=== PATIENT | female | born 1955 | race Caucasian/White ===

== ENCOUNTER 2020-03-30 09:13 | Outpatient (CLI) | payer MEDICARE, BC, OTHER, SELFPAY ==
--- NOTE | ~2020-03-30 | CT_ITS ---
EXAMINATION: CT abdomen pelvis wo/w con DATE: 03/30/2020 09:40 INDICATION: Abdominal pain, history of left kidney cancer TECHNIQUE: Computed tomography (CT) of the abdomen was performed without intravenous contrast. CT of the abdomen and pelvis was then performed with a total of 100 mL Omnipaque 350 intravenous contrast. The dose-length product (DLP) was 868.17 mGy-cm. Automated exposure control and iterative reconstruct ion technique were employed. COMPARISON: 09/16/2018 FINDINGS: Minimal dependent atelectasis is present in the lung bases. The heart size is normal. The l iver, pancreas, gallbladder, and adrenal glands are normal. There are surgical changes in the left ki dney upper pole with no evidence of residual or recurrent neoplasm. There is a 2.2 cm cyst of the rig ht kidney. No stones are identified in the kidneys, ureters, or bladder. There is no hydronephrosis o r hydroureter. No pathologically enlarged abdominal or pelvic lymph nodes are identified. There is no free intraperitoneal gas or evidence of bowel obstruction. There is calcified atherosclerosis of the aorta and many of the other arteries. The appendix is normal. There is moderate lumbar spondylosis. IMPRESSION: 1. No CT correlate for the patient's symptoms. 2. Surgical changes in the left kidney upper pole without evidence of residual or recurrent neoplasm. Reviewed, dictated and finalized at location A. TIC FACILITY MANAGER
[2020-03-30 09:36] LABS: Estimated Glomerular Filt Rate 55
== END 2020-03-30 09:14 | disposition home or self-care (01) ==
LOC: ANHIMG 09:18
PROVIDERS: PCP Family Medicine; Visit Provider Family Medicine
DX: R10.9 Unspecified abdominal pain (principal); C64.9 Malignant neoplasm of unspecified kidney, except renal pelvis
CPT/HCPCS: 74178; Q9967

== ENCOUNTER 2020-08-11 13:59 | Outpatient (CLI) | payer MEDICARE, BC, OTHER, SELFPAY ==
--- NOTE | ~2020-08-11 | CT_ITS ---
EXAMINATION: CT soft tissue neck wo con DATE: 08/11/2020 14:25 INDICATION: Neck pain. TECHNIQUE: Computed tomography (CT) of the neck was performed without intravenous contrast. Automated exposure control and iterative reconstruction technique were employed. The dose-length product was 4 57.63 mGy-cm. COMPARISON: None FINDINGS: Calcified left lung nodules are consistent with old granulomatous disease. There are no pat hologically enlarged lymph nodes. The major salivary glands are normal. There is no sialolith. The pa ranasal sinuses are clear. The mastoid air cells are normal. There is moderate cervical spondylosis. IMPRESSION: 1. No specific etiology for the patient's symptoms. Reviewed, dictated and finalized at location B.
== END 2020-08-11 14:00 | disposition home or self-care (01) ==
PROVIDERS: PCP Family Medicine; Visit Provider Family Medicine
DX: M54.2 Cervicalgia (principal); G89.29 Other chronic pain
CPT/HCPCS: 70490

== ENCOUNTER 2021-01-31 11:50 | Outpatient (RCR) | payer MEDICARE, BC, OTHER, SELFPAY ==
[2021-01-31] MEDS: diphenhydrAMINE HCl CAP 25 MG CAPSULE PO (12:14)
[2021-01-31] MEDS: ACETAMINOPHEN 325 MG TABLET 650 MG PO (12:14)
[2021-01-31] MEDS: FAMOTIDINE 20 MG TABLET PO (12:15)
[2021-01-31 12:18] VITALS: BP 159/74; PULSE 74; RESP 20; TEMP 36.9; O2SAT 98
[2021-01-31 13:18] VITALS: BP 145/70
== END 2021-01-31 15:52 | disposition home or self-care (01) ==
LOC: AMCINF 11:50
PROVIDERS: PCP Family Medicine; Referring Provider Family Medicine; Visit Provider Internal Medicine Hematology & Oncology
DX: Z23 Encounter for immunization (principal); U07.1 COVID-19; I10 Essential (primary) hypertension
CPT/HCPCS: A9270; M0243; Q0243

== ENCOUNTER 2021-08-16 14:48 | Outpatient (CLI) | payer MEDICARE, BC, OTHER, SELFPAY ==
--- NOTE | ~2021-08-16 | MR_ITS ---
EXAMINATION: MR cervical spine wo con DATE: 08/16/2021 15:44 INDICATION: Radiculopathy, cervical region. TECHNIQUE: Magnetic resonance imaging (MRI) of the cervical spine was performed without intravenous c ontrast. Sequences included sagittal T2-weighted FSE, sagittal T2-weighted FS FSE, sagittal T1-weight ed FSE, axial MERGE, and axial T2-weighted FSE. COMPARISON: None FINDINGS: There is hypolordosis of cervical spine. Vertebral body heights are normal. There is mildly decreased disc height at C6-C7. The spinal cord signal intensity is normal. The following disc level s are specifically discussed: C2-C3: The disc does not extend beyond the endplate margin. There is mild right uncovertebral joint o steoarthritis. There is no facet joint osteoarthritis. There is mild right neural foraminal stenosis. There is no central canal stenosis. C3-C4: There is a central extrusion. There is no uncovertebral joint osteoarthritis. There is no face t joint osteoarthritis. There is no neural foraminal stenosis. There is mild central canal stenosis w ith ventral indentation of the spinal cord. C4-C5: There is a central protrusion. There is no uncovertebral joint osteoarthritis. There is no fac et joint osteoarthritis. There is no neural foraminal stenosis. There is mild central canal stenosis with ventral indentation of the spinal cord. C5-C6: There is a left central extrusion. There is moderate bilateral uncovertebral joint osteoarthri tis. There is no facet joint osteoarthritis. There is mild right and moderate left neural foraminal s tenosis. There is moderate central canal stenosis with ventral and dorsal indentation of the spinal c ord. C6-C7: The disc is bulging with superimposed extrusion in the left lateral recess. There is moderate bilateral uncovertebral joint osteoarthritis. There is no facet joint osteoarthritis. There is modera te left neural foraminal stenosis. There is mild central canal stenosis at the midline. There is kev re stenosis of left lateral recess with ventral indentation of the spinal cord. C7-T1: There is a central protrusion. There is no uncovertebral joint osteoarthritis. There is mild r ight and severe left facet joint osteoarthritis. There is mild left neural foraminal stenosis. There is mild central canal stenosis. IMPRESSION: 1. Moderate cervical spondylosis. Reviewed, dictated and finalized at location A.
== END 2021-08-16 14:49 | disposition home or self-care (01) ==
PROVIDERS: PCP Family Medicine; Visit Provider Family Medicine
DX: M47.22 Other spondylosis with radiculopathy, cervical region (principal)
CPT/HCPCS: 72141

== ENCOUNTER → 2022-09-06 13:34 | Outpatient (CLI) | payer MEDICARE, BC, OTHER, SELFPAY ==
--- NOTE | ~2022-09-06 | CT_ITS ---
EXAMINATION: CT soft tissue neck w con DATE: 09/06/2022 14:02 INDICATION: Bilateral parotid masses. TECHNIQUE: Computed tomography (CT) of the neck was performed with 75 mL Omnipaque-350 intravenous co ntrast. Automated exposure control and iterative reconstruction technique were employed. The dose-keagan gth product was 438.66 mGy-cm. COMPARISON: Neck CT 08/11/2020 FINDINGS: There is a 9 x 7 mm mass in superficial right parotid gland that previously measured 5 x 4 mm, likely a normal lymph node. No sialolith or abnormal mass. There are no pathologically enlarged l ymph nodes. There is plaque in the proximal internal carotid arteries with less than 50% stenosis rel ative to normal distal artery lumen diameters. There is moderate cervical spondylosis. IMPRESSION: 1. Normal parotid glands. Reviewed, dictated and finalized at location A. IMPRESSION: 1. Normal parotid glands.
== END ==
PROVIDERS: PCP Family Medicine; Visit Provider Otolaryngology
DX: K11.8 Other diseases of salivary glands (principal)
CPT/HCPCS: 70491; Q9967

== ENCOUNTER 2023-04-15 09:13 | Outpatient (CLI) | payer MEDICARE, BC, OTHER, SELFPAY ==
[2023-04-15 19:49] LABS: Alanine Aminotransferase 18 U/L (6-35); Alkaline Phosphatase 93 U/L (38-126); Anion Gap 4 mmol/L (8-16); Aspartate Amino Transferase 26 U/L (14-36); Bilirubin,Total 0.7 mg/dL (0.2-1.3); Blood Urea Nitrogen 15 mg/dL (7-17); Calcium 9.1 mg/dL (8.4-10.2); Carbon Dioxide 34 mmol/L (22-30); Chloride 103 mmol/L (98-107); Cholesterol 166 mg/dL (0-200); Estimated Glomerular Filt Rate > 60; Glucose 95 mg/dL (65-110); HDL Direct 35 mg/dL; Potassium 4.5 mmol/L (3.4-5.0); Sodium 141 mmol/L (137-145); Triglycerides 149 mg/dL (<150)
[2023-04-15 19:59] LABS: Basophils Absolute Auto 0.1 K/mm3 (0.0-0.1); Basophils Percent Auto 1.4 % (0.2-1.2); Eosinophils Absolute Auto 0.2 K/mm3 (0-0.3); Eosinophils Percent Auto 3.6 % (0-4.4); Hematocrit 45.3 % (37.0-47.0); Hemoglobin 14.4 g/dL (12.0-15.0); Immature Granulocyte Absolute 0.01 K/mm3 (0.00-0.031); Immature Granulocyte Percent A 0.2 % (0-0.5); Lymphocytes Absolute Auto 1.96 K/mm3 (0.9-3.2); Lymphocytes Percent Auto 30.6 % (18.3-44.2); Mean Corpuscular HGB Conc 31.8 g/dl (32-36); Mean Corpuscular Hemoglobin 32.4 pg (26-34); Mean Platelet Volume 10.3 fl (7.4-10.4); Monocytes Absolute Auto 0.6 K/mm3 (0.1-0.6); Neutrophils Absolute Auto 3.5 K/mm3 (1.3-6.7); Neutrophils Percent Auto 54.2 % (45.5-73.1); Platelet Count Result 256 k/mm3 (150-375); Red Blood Count 4.44 M/mm3 (4.2-5.4); Red Cell Distribution Width 11.4 % (11.5-14.5); White Blood Count 6.4 K/mm3 (4.5-10.0)
[2023-04-15 20:00] LABS: LDL Cholesterol Direct 90 mg/dL
[2023-04-15 20:03] LABS: Appearance Urine Turbid (Clear); Bacteria Urine None Seen /hpf; Bilirubin Urine Negative (Negative); Blood Urine Negative (Negative); Color Urine Yellow (Yellow); Glucose Urine UA Negative (Negative); Ketones Urine Negative (Negative); Leukocyte Esterase Ur Negative LEU/UL (NEGATIVE); Nitrate Urine Negative (Negative); Non Pathogenic Casts 0-2; Protein Urine Negative (Negative); RBC Urine 0-2 /hpf (0-2); Specific Grav Ur 1.019 (1.001-1.035); Squamous Epithelial Cell Urine Moderate /hpf (Few); Urobilinogen Urine 0.2 mg/dL (<2.0); WBC Urine 0-5 /hpf (0-3); pH Urine 5.5 (5.0-9.0)
[2023-04-15 20:17] LABS: Add Urine Microscopic? YES
[2023-04-15 20:19] LABS: Thyroid Stimulating Hormone 0.178 uIU/mL (0.465-4.680)
[2023-04-15 20:36] LABS: Hemoglobin A1C 6.1 % (<5.7)
[2023-04-18 23:57] LABS: Vitamin D 1,25 (OH)2 Total 32 pg/mL (18-72); Vitamin D2 1,25 (OH)2 <8 pg/mL; Vitamin D3 1,25 (OH)2 32 pg/mL
== END 2023-04-15 09:14 | disposition home or self-care (01) ==
LOC: ANHGOSHLAB 09:17
PROVIDERS: PCP Family Medicine; Visit Provider Family Medicine
DX: E55.9 Vitamin D deficiency, unspecified (principal); D51.9 Vitamin B12 deficiency anemia, unspecified; R73.01 Impaired fasting glucose; E78.2 Mixed hyperlipidemia; E03.9 Hypothyroidism, unspecified
CPT/HCPCS: 36415; 80048; 80061; 80076; 81001; 82607; 82652; 83036; 84443; 85025

== ENCOUNTER 2023-10-13 08:38 | Outpatient (CLI) | payer MEDICARE, BC, OTHER, SELFPAY ==
[2023-10-13 15:20] LABS: Alanine Aminotransferase 17 U/L (6-35); Albumin Level 4.4 g/dL (3.5-5.1); Alkaline Phosphatase 93 U/L (38-126); Anion Gap 8 mmol/L (4-12); Aspartate Amino Transferase 47 U/L (14-36); Bilirubin,Total 0.9 mg/dL (0.2-1.3); Blood Urea Nitrogen 17 mg/dL (7-17); Calcium 8.8 mg/dL (8.4-10.2); Carbon Dioxide 32 mmol/L (22-30); Chloride 100 mmol/L (98-107); Cholesterol 148 mg/dL (0-200); Estimated Glomerular Filt Rate > 60; Glucose 82 mg/dL (65-110); HDL Direct 33 mg/dL; Potassium 4.4 mmol/L (3.4-5.0); Sodium 140 mmol/L (137-145); Triglycerides 134 mg/dL (<150)
[2023-10-13 15:32] LABS: LDL Cholesterol Direct 88 mg/dL
[2023-10-13 15:47] LABS: Free T4 Free Thyroxine 1.92 ng/mL (0.78-2.19)
[2023-10-13 15:49] LABS: Thyroid Stimulating Hormone 0.083 uIU/mL (0.465-4.680)
[2023-10-14 08:36] LABS: Hemoglobin A1C 6.2 % (<5.7)
== END 2023-10-13 08:39 | disposition home or self-care (01) ==
PROVIDERS: PCP Family Medicine; Visit Provider Family Medicine
DX: E03.9 Hypothyroidism, unspecified (principal); E78.2 Mixed hyperlipidemia; R73.01 Impaired fasting glucose
CPT/HCPCS: 36415; 80048; 80061; 80076; 83036; 84439; 84443

== ENCOUNTER 2023-12-22 12:53 | Outpatient (CLI) | payer MEDICARE, BC, OTHER, SELFPAY ==
[2023-12-22 13:37] LABS: Add Urine Microscopic? YES; Appearance Urine Clear (Clear); Bacteria Urine Rare /hpf; Bilirubin Urine Negative (Negative); Blood Urine Trace (Negative); Color Urine Yellow (Yellow); Glucose Urine UA Negative (Negative); Ketones Urine Negative (Negative); Leukocyte Esterase Ur 2+ LEU/UL (Negative); Nitrate Urine Negative (Negative); Non Pathogenic Casts 0-2; Protein Urine Negative (Negative); RBC Urine 0-2 /hpf (0-2); Specific Grav Ur 1.005 (1.001-1.035); Squamous Epithelial Cell Urine None Seen /hpf (Few); Urobilinogen Urine 0.2 mg/dL (<2.0); WBC Urine 21-50 /hpf (0-3)
== END 2023-12-22 12:54 | disposition home or self-care (01) ==
PROVIDERS: PCP Family Medicine; Visit Provider Nurse Practitioner Family
DX: R30.0 Dysuria (principal)
CPT/HCPCS: 81001; 87077; 87086; 87088; 87186

== ENCOUNTER 2024-05-27 09:11 | Outpatient (CLI) | payer MEDICARE, BC, OTHER, SELFPAY ==
[2024-05-27 15:04] LABS: Basophils Absolute Auto 0.1 K/mm3 (0.0-0.1); Basophils Percent Auto 0.8 % (0.2-1.2); Eosinophils Absolute Auto 0.2 K/mm3 (0-0.3); Eosinophils Percent Auto 3.7 % (0-4.4); Hematocrit 45.2 % (37.0-47.0); Hemoglobin 14.5 g/dL (12.0-15.0); Lymphocytes Absolute Auto 2.01 K/mm3 (0.9-3.2); Mean Corpuscular HGB Conc 32.1 g/dl (32-36); Mean Corpuscular Hemoglobin 32.5 pg (26-34); Mean Corpuscular Volume 101.3 fl (80-100); Monocytes Absolute Auto 0.5 K/mm3 (0.1-0.6); Monocytes Percent Auto 8.6 % (2.6-8.5); Neutrophils Absolute Auto 3.5 K/mm3 (1.3-6.7); Neutrophils Percent Auto 54.9 % (45.5-73.1); Platelet Count Result 243 k/mm3 (150-375); Red Blood Count 4.46 M/mm3 (4.2-5.4); Red Cell Distribution Width 11.3 % (11.5-14.5); White Blood Count 6.3 K/mm3 (4.5-10.0)
[2024-05-27 15:16] LABS: Add Urine Microscopic? YES; Appearance Urine Cloudy (Clear); Bacteria Urine Rare /hpf; Bilirubin Urine Negative (Negative); Blood Urine Negative (Negative); Budding Yeast Urine Present /hpf; Calcium Oxalate Crystals Urine Present /hpf; Color Urine Yellow (Yellow); Glucose Urine UA Negative (Negative); Ketones Urine Trace mg/dL (Negative); Leukocyte Esterase Ur 1+ LEU/UL (Negative); Need Manual Microscopic Reviewed; Nitrate Urine Negative (Negative); Non Pathogenic Casts 0-2; Protein Urine Negative (Negative); Squamous Epithelial Cell Urine Moderate /hpf (Few); WBC Urine 21-50 /hpf (0-3)
[2024-05-27 15:26] LABS: Creatinine Urine 261.1 mg/dL
[2024-05-27 15:30] LABS: MALB Creatinine Ratio 4.7 mg/g (0-30); Microalbumin Urine Random 12.4 mg/L (0-16.7)
[2024-05-27 19:11] LABS: Alanine Aminotransferase 26 U/L (6-35); Albumin Level 4.1 g/dL (3.5-5.1); Alkaline Phosphatase 85 U/L (38-126); Anion Gap 8 mmol/L (4-12); Aspartate Amino Transferase 44 U/L (14-36); Bilirubin,Total 0.6 mg/dL (0.2-1.3); Blood Urea Nitrogen 12 mg/dL (7-17); Calcium 8.6 mg/dL (8.4-10.2); Carbon Dioxide 31 mmol/L (22-30); Chloride 103 mmol/L (98-107); Cholesterol 117 mg/dL (0-200); Estimated Glomerular Filt Rate > 60; Glucose 91 mg/dL (65-110); HDL Direct 28 mg/dL; Phosphorus 3.6 mg/dL (2.5-4.5); Potassium 4.1 mmol/L (3.4-5.0); Sodium 142 mmol/L (137-145); Triglycerides 129 mg/dL (<150)
[2024-05-27 19:22] LABS: LDL Cholesterol Direct 56 mg/dL
[2024-05-27 22:43] LABS: Free T4 Free Thyroxine 1.16 ng/dL (0.78-2.19)
[2024-05-28 04:17] LABS: Hemoglobin A1C 6.5 % (<5.7)
== END 2024-05-27 09:12 | disposition home or self-care (01) ==
LOC: ANHGOSHLAB 09:13
PROVIDERS: PCP Family Medicine; Visit Provider Family Medicine
DX: E03.9 Hypothyroidism, unspecified (principal); D51.9 Vitamin B12 deficiency anemia, unspecified; E78.2 Mixed hyperlipidemia; R73.01 Impaired fasting glucose; E55.9 Vitamin D deficiency, unspecified
CPT/HCPCS: 36415; 80053; 80061; 81001; 82043; 82607; 82652; 83036; 84100; 84439; 84443; 85025

== ENCOUNTER 2024-09-03 12:40 | Outpatient (CLI) | payer MEDICARE, BC, OTHER, SELFPAY ==
--- NOTE | ~2024-09-03 | US_ITS ---
US thyroid INDICATION: Dysphagia. Neck swelling TECHNIQUE: Real-time sonographic images of the thyroid gland were obtained. COMPARISON: No prior studies for comparison. FINDINGS: The right thyroid lobe is surgically absent. The left lobe measures 4.1 x 1.1 x 1.2 cm and is heterogeneous without discrete mass. Isthmus measures 2 mm. IMPRESSION: 1. Heterogeneous left thyroid lobe without discrete mass. Status post right thyroidectomy. Reviewed, dictated and finalized at location A. IMPRESSION: 1. Heterogeneous left thyroid lobe without discrete mass. Status post right th yroidectomy.
== END 2024-09-03 12:41 | disposition home or self-care (01) ==
LOC: MICIMG 12:42
PROVIDERS: PCP Family Medicine; Visit Provider Family Medicine
DX: R13.10 Dysphagia, unspecified (principal)
CPT/HCPCS: 76536

== ENCOUNTER 2024-09-09 08:27 | Outpatient (CLI) | payer MEDICARE, BC, OTHER, SELFPAY ==
--- OUTSIDE RECORDS SUMMARY | 2024-09-09 08:39 | XMS_ITS | Clinical Summary ---
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 Name Role Phone Jose Pool MD Primary Care Provider [phone] Allergies Active Allergy Reactions Criticality Noted Date Comments Pravastatin Muscle pain Medium 03/22/2019 Medications levothyroxine (LEVOXYL) 100 mcg tabletIndicatio ns:hypothyroidi sm Take 1 tablet (100 mcg total) by mouth buckle wire inserter before breakfast 8 Active ibuprofen (ibuprofen) 200 mg tab/cap Take 1 tablet/capsule (200 mg total) by mouth every 6 (six) hours as needed for headaches, fever or pain Active valACYclovir (VALTREX) 1 gram tabletIndicatio ns:cold sores Take 1 tablet (1,000 mg total) by mouth as needed 1 Active rosuvastatin (CRESTOR) 10 mg tablet TAKE ONE TABLET BY MOUTH EVERY DAY 90 tablet 3 1 Active Additional Information Patient taking differently: 10 mg oral Daily (early AM), Indications: hyperlipidemia, Informant: Self, Reported on 08/22/2023 cyclobenzaprine (FLEXERIL) 10 mg tablet Take 1 tablet (10 mg total) by mouth 3 (three) times a day as needed for muscle spasms for muscle spasms 3 Active irbesartan (AVAPRO) 300 mg tabletIndicatio ns:hypertension Take 1 tablet (300 mg total) by mouth buckle wire inserter before breakfast [address] (PROTONIX) 40 mg EC tabletIndicatio ns:Treatment of Non-Bleeding Gastric Disorder Take 1 tablet (40 mg total) by mouth every morning 3 Active vitamins A,C,E-zinc-angel er (ICAPS) 4,296 mcg-226 mg-90 mg capsuleIndicati ons:eye health Take 1 capsule by mouth 2 (two) times a day Active senna-docusate (Senna with Docusate Sodium) 8.6-50 mg Take 1 tablet by mouth daily 30 tablet 4 Active Active Problems Problem Noted Date Diagnosed Date Cubital tunnel syndrome on right 08/21/2023 Dermatochalasis of both upper eyelids 08/01/2022 Assessment & Plan (05/21/2024 4:13 PM METALLURGY LABORATORY TECHNICIAN): Discussed option for eyelid evaluation, pt again defers. Will monitor and call should desire to proceed w surgery Assessment & Plan (08/04/2023 10:46 AM CDT): Evaluated by Dr. Peterson 09/11/22, she elects to monitor at this time. Pt to call if she changes her mind prior to annual visit. Assessment & Plan (08/01/2022 11:25 AM CDT): -pt reports brow ache at the end of the day -also reports she feels tired constantly d/t her eyelids -also with superior peripheral vision complaints; subjectively reports vision improves when manually lifting eyelids in office today -pt motivated for surgical intervention -RTC next available with oculoplastics for bleph evaluation Allergic conjunctivitis of both eyes 12/06/2020 Assessment & Plan (05/21/2024 12:31 PM METALLURGY LABORATORY TECHNICIAN): Continue using OTC allergy gtts such as Pataday. Monitor. Assessment & Plan (08/04/2023 10:46 AM CDT): Ed pt, recommend Pataday or Lastacaft qam. Monitor. Assessment & Plan (12/06/2020 11:15 AM CDT): Discussed findings and treatment options. Rx Alaway or zaditor OTC bid ou prn. RTC if not resolving. Monitor. Refractive error 12/06/2020 Assessment & Plan (12/06/2020 11:20 AM CDT): New Rx provided today. Lightheadedness 09/07/2020 Assessment & Plan (09/07/2020 9:56 AM CDT): Not orthostatic or corresponding with low BP. Palpitations 02/04/2019 Assessment & Plan (02/04/2019 8:36 PM METALLURGY LABORATORY TECHNICIAN): Occasional palpitations lasting a minute at a time occurring randomly but perhaps stress related. Will obtain a 24 hour Holter. Even if she does not have symptoms on the day of monitoring, we may she something which will give a hint as to what she is experiencing. Essential hypertension 02/04/2019 Assessment & Plan (09/07/2020 12:01 PM CDT): Blood pressure is adequately controlled on current regimen. No change was made. Assessment & Plan (09/06/2019 10:46 AM CDT): Blood pressure is adequately controlled on current regimen. No change was made. Assessment & Plan (03/22/2019 9:50 AM METALLURGY LABORATORY TECHNICIAN): Blood pressure is controlled with increased irbesartan dosage. Continue 300 mg daily. Assessment & Plan (02/04/2019 8:37 PM METALLURGY LABORATORY TECHNICIAN): Blood pressure is not optimally controlled on irbesartan 150 mg daily. Would consider increasing this dose or adding a beta-deuce or calcium channel deuce, depending on the results of her testing. Will obtain an echo Doppler to assess for left ventricular hypertrophy. Chest pain 02/04/2019 Assessment & Plan (02/04/2019 8:39 PM METALLURGY LABORATORY TECHNICIAN): Chest pain is somewhat atypical and may be related to her cervical spine disease. Nevertheless, she has significant risk factors for coronary artery disease. Resting electrocardiogram is normal. Will obtain a stress test without imaging. Hyperlipidemia 02/04/2019 Assessment & Plan (09/15/2020 3:55 PM CDT): On chronic lipid lowering therapy with good control. No changes made. Recent coronary calcium score is very reassuring. Assessment & Plan (09/06/2019 10:46 AM CDT): On chronic lipid lowering therapy with good control. No changes made. Assessment & Plan (03/22/2019 9:51 AM METALLURGY LABORATORY TECHNICIAN): Severe dyslipidemia with LDL 208 on 09/10/2018. She is not tolerating pravastatin. Will try rosuvastatin 10 mg daily. She is to call in one month with a progress report. Assessment & Plan (02/04/2019 8:40 PM METALLURGY LABORATORY TECHNICIAN): Will request most recent lipids from her PCP. Given her other risk factors for coronary artery disease, dyslipidemia should be treated. This has been recommended to her, and she has not agreed with the recommendation. I sense that she still does not. Meibomian gland dysfunction (MGD) of both eyes 0 12/03/2017 Age-related nuclear cataract of both eyes 2017 Assessment & Plan (05/21/2024 12:36 PM METALLURGY LABORATORY TECHNICIAN): Not visually significant, recommend UV protection. Continue with habitual specs. Monitor. Assessment & Plan (08/04/2023 10:47 AM CDT): Educated patient on s/s associated with cataracts. Not visually significant, recommend UV protection. Monitor. Assessment & Plan (08/01/2022 10:55 AM CDT): -not yet visually significant -BCVA 20/20 today; new MRx given to pt (+)glare complaints but not motivated for surgical intervention at this time -follow -RTC 1 year DFE Assessment & Plan (12/06/2020 11:16 AM CDT): Discussed options. Monitor. UV protection recommended Macular drusen, bilateral 12/03/2017 Overview (08/04/2023): -(+)FHx AMD- mother -Pt did not start AREDS2 as recommended last year -Baseline OCT mac today w/ vitelliform like lesion OD>OS Assessment & Plan (05/21/2024 4:15 PM METALLURGY LABORATORY TECHNICIAN): Macular drusen OD> OS. Patient has been monitored for several years with vitelliform-like OCT findings, appearing stable on posterior exam today; no heme/fluid. (+)FHx: mother. -Continue with AREDS 2 BID -Continue with Amsler grid monitoring at home. -Recommend to RTC in 6 months with retina clinic, or sooner should problems arise. Assessment & Plan (08/04/2023 10:48 AM CDT): Educated patient on ocular findings, discussed no smoking/tobacco use, UV protection, eating green leafy vegetables, and taking AREDS2 vitamins BID. Monitor with home amsler grid. Monitor in 9 months with DFE + OCT mac, sooner if changes to vision occur. Assessment & Plan (08/01/2022 11:23 AM CDT): (+)FHx: mother -stable on posterior exam today; no heme/fluid -rec AREDS2 bid -rec Amser grid monitoring at home -follow with annual DFE -RTC 1 year DFE and OCT mac or sooner prn Assessment & Plan (12/06/2020 11:36 AM CDT): Monitor. Yearly DFE. Amsler grid rec. 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 renal cell carcinoma, clear cell type. grade II, 1.4cm, (-) margins (Added by TW Conv) THYROIDECTOMY 03/31/1994 - 03/30/1995 COLONOSCOPY 03/31/2019 - 03/30/20202013 Medical History Medical History Date Comments Radiculopathy of lumbar region L umbar radiculopathy - (Added by TW Conv) Nontoxic diffuse goiter Simple g oiter - Thyroid (Added by TW Conv) Chronic rhinitis Chronic rhiniti s - (Added by TW Conv) Gastro-esophageal reflux dis ease without esophagitis Esophageal reflux - (Added b y TW Conv) Personal history of other me ntal and behavioral disorders History of depression - (Add ed by TW Conv) Anxiety disorder Anxiety - (Adde d by TW Conv) Deficiency of other specifie d B group vitamins Vitamin B12 deficiency - (Ad ded by TW Conv) Personal history of other di seases of the circulatory system History of hypertension - (A dded by TW Conv) Personal history of other en docrine, nutritional and metabolic disease History of thyroid d isorder - (Added by TW Conv) Personal history of other di seases of the musculoskeletal system and connective tissue History of back pain - (Adde d by TW Conv) Pain of upper extremity Arm pain - (Added by TW Conv) Pain in shoulder Shoulder pain - (Added by TW Conv) Personal history of other ma lignant neoplasm of kidney History of kidney cancer - ( Added by TW Conv) Presence of spectacles and contact lenses Wears glasses - (Added by TW Conv) Cancer (HCC) Cataract Family History Medical History Relation Name Comments Heart attack Brother 1 Heart disease Brother 1 Family history of cardiac disorder - (Added by TW Conv) Bladder Cancer Brother 2 Family histor y of bladder cancer - (Added by TW Conv) Lung cancer Father Family history of lung cancer - (Added by TW Conv) Throat cancer Father Throat cancer - (Added by TW Conv) Macular degeneration Mother Relation Name Status Comments Brother 1 Brother 2 Father Mother Social History Tobacco Use Types Packs/Day Years Used Date Smoking Tobacco: Never Passive Smoke Exposure: Never Smokeless Tobacco: Never Tobacco Cessation:Counseling Given: Not Answered Alcohol Use Standard Drinks/Week Comments Yes 0 (1 standard drink = 0.6 oz pur e alcohol) Rarely AUDIT-C Answer Date Recorded Q1: How often do you have a drink containing alc ohol? Monthly or less 08/22/2023 Q2: How many drinks containi ng alcohol do you have on a typical day when you are drinking? 1 or 2 08/22/2023 Q3: How often do you have si x or more drinks on one occasion? Never 08/22/2023 Personal Safety Answer Date Recorded Have you ever been in or are you currently in a harmful physical or emotional relationship or is someone making you feel afraid or unsafe? Denies 09/02/2023 Comments No Sex and Gender Information Value Date Recorded Sex Assigned at Not on file Legal Sex Female 5:57 PM METALLURGY LABORATORY TECHNICIAN Gender Identity Not on file Sexual Orientation Not on file Obstetrics History Last Filed Vital Signs Vital Sign Reading Time Taken Comments Blood Pressure 132/60 09/02/2023 11:25 AM CDT Pulse 62 09/02/2023 11:25 AM CDT Temperature 36.3 C (97.3 F) 09/02/2023 10:47 AM CDT Respiratory Rate 19 09/02/2023 11:25 AM CDT Oxygen Saturation 89% 09/02/2023 11:25 AM CDT Inhaled Oxygen Concentration - - Weight 79.4 kg (175 lb) 09/02/2023 7:25 AM CDT Height 157.5 cm (5' 2.01) 09/02/2023 7:25 AM CD T Body Mass Index 32 09/02/2023 7:25 AM CDT Plan of Treatment Health Maintenance Due Date Last Done Comments Colon Cancer Screening-Colonoscopy 1955 Depression Screening 1955 Hepatitis C Screening 1955 DTaP/Tdap/Td Vaccine (1 - Tdap) 1964 Hepatitis B Screening 1971 Pneumococcal vaccine 65+ (1 of 1 - PCV) 2003 Zoster Vaccine (1 of 2) 2003 Well Visit 65+ 2018 Osteoporosis Screening-Bone Density Scan 06/08/2022 06/08/2020, 01/02/2017 Fall Risk Assessment 09/01/2024 09/02/2023 Breast Cancer Screening-Mammogram 09/15/2024 09/16/2023, 08/16/2022, 07/09/2021, Additional history exists Influenza Vaccine (Season Ended) 2024 Procedures Procedure Name Priority Date/Time Associated Diagnosis Comments SCREENING MAMMOGRAM BILATERAL W FRANCO Schedule Routine, Read Routine (OP Routine) 09/16/2023 10:39 AM CDT Screening mammogram, encounter for DEXA AXIAL SKELETON BONE DENSITY 1 OR MORE SITES Schedule Routine, Read Routine (OP Routine) 06/08/2020 9:14 AM METALLURGY LABORATORY TECHNICIAN Osteoporosis screening from Last 3 Months or Most Recently Relevant to Health Maintenance Results * Screening Mammogram Bilateral W Franco (09/16/2023 10:39 AM CDT) Anatomical Region Laterality Modality Breast Bilateral Mammography Narrative 09/16/2023 12:05 PM CDT Examination: Screening Mammogram Bilateral W Franco: 09/16/23 Clinical: Screening mammogram, encounter for. Prior Study Comparisons: Comparison was made to the prior available relevant studies at the time of interpretation. Findings: Bilateral No significant masses, malignant type calcifications, skin thickening, nipple retraction, or significant lymphadenopathy is noted in either breast. The CAD review showed no significant findings. The breasts have scattered areas of fibroglandular density. The patient will be notified of results by letter. Impression: BI-RADS ATLAS category (overall): 2 - Benign There is no mammographic evidence of malignancy. Routine Screening Mammogram in 1 Yr is recommended for bilateral Overall Assessment: 2 - Benign us Self Screening Mammogram IMG MAMMO PROCEDURES Fi nal Result * Dexa Axial Skeleton Bone Density 1 or 2 Site (06/08/2020 9:14 AM METALLURGY LABORATORY TECHNICIAN) Anatomical Region Laterality Modality Body N/A Digital Radiogra phy 06/08/2020 10:5 6 AM METALLURGY LABORATORY TECHNICIAN Impressions 06/08/2020 10:56 AM METALLURGY LABORATORY TECHNICIAN Low bone mass (osteopenia) which depending on the clinical circumstances may result in a moderate increased risk of fragility fracture. If followup is to be done, for technical reasons, it should be performed on this same machine. Electronically signed by: Jean Rain M.D. Narrative 06/08/2020 10:56 AM METALLURGY LABORATORY TECHNICIAN EXAM: Bone mineral density [facility]. HISTORY: Osteopenia. DXA BMD was done at [facility] on a Hologic Discovery CI. Precision testing at this site has resulted in a least significant change of: Lumbar spine 0.031 g/sq cm Total Hip 0.026 g/sq cm Femoral neck 0.040 g/sq cm BMD L1-L4 is 0.977 g/sq cm corresponding to a T score of -0.6. BMD left femoral neck is 0.676 g/sq cm corresponding to a T score of -1.6. BMD total left hip is 0.846 g/sq cm corresponding to a T score of -0.8. COMPARISON: As compared to study of 01/02/2017, lumbar spine bone density has increased by 3.7%. Left hip bone density has decreased by 6.6%. Femoral neck bone density has decreased by 4.9%. Procedure Note Jean Rain MD - 06/08/2020 EXAM: Bone mineral density [facility]. HISTORY: Osteopenia. DXA BMD was done at [facility] on a Hologic Discovery CI. Precision testing at this site has resulted in a least significant change of: Lumbar spine 0.031 g/sq cm Total Hip 0.026 g/sq cm Femoral neck 0.040 g/sq cm BMD L1-L4 is 0.977 g/sq cm corresponding to a T score of -0.6. BMD left femoral neck is 0.676 g/sq cm corresponding to a T score of -1.6. BMD total left hip is 0.846 g/sq cm corresponding to a T score of -0.8. COMPARISON: As compared to study of 01/02/2017, lumbar spine bone density has increased by 3.7%. Left hip bone density has decreased by 6.6%. Femoral neck bone density has decreased by 4.9%. IMPRESSION: Low bone mass (osteopenia) which depending on the clinical circumstances may result in a moderate increased risk of fragility fracture. If followup is to be done, for technical reasons, it should be performed on this same machine. Electronically signed by: Jean Rain M.D. Hayden Riggs MD IMG DXA PROCEDURES Final Result from Last 3 Months or Most Recently Relevant to Health Maintenance Insurance MEDICARE [facility] Member Subscriber Plan / Payer ( fective 2015-Present) Name:Helen Redd Relation to Subscriber:Spouse Name:LUCY REDD Date of :1899 (Home) Address: [facility] [place] [address] Payer ID:[id number] (NAIC) Group ID:[id number] Type:[facility] Address: [address] [place] [address] [facility] MEDICARE FOR [facility] MEDICARE FOR LIFE [facility] FEDERAL Member Subscriber Plan / Payer (Ef fective 2015-Present) Name:Helen Redd Ann Relation to Subscriber:Spouse Name:LUCY REDD Date of :1899 (Home) Address: [facility] [place] [address] Payer ID:[id number] (NAIC) Group ID:[id number] Type:[employer] Address: [address] [place] [address] Care Teams Tape Cutting Machine Operator Relationship Specialty Start Date End Date Jose Pool MD [address] [address] PCP - General 07/24/16
--- OUTSIDE RECORDS SUMMARY | 2024-09-09 08:39 | XMS_ITS | Clinical Summary ---
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 Active lansoprazole (PREVACID) 30 mg Capsule, Delayed Release(E.C.) Take 15 mg by mouth daily. Active orphenadrine (NORFLEX) 100 mg Extended Release tablet Take 100 mg by mouth 2 times daily as needed for Spasm. Active irbesartan (AVAPRO) 150 mg tablet Take 150 mg by mouth daily at bedtime. Active rosuvastatin (CRESTOR) 10 mg tablet Take 10 mg by mouth daily. Active Active Problems Problem Noted Date Diagnosed Date Diverticulosis of colon 01/13/2014 Personal history of colonic polyps--next screening colonoscopy December 2026 01/13/2014 Family History Medical History Relation Name Comments Colon Cancer Neg Hx Social History Tobacco Use Types Packs/Day Years Used Date Smoking Tobacco: Never Alcohol Use Standard Drinks/Week Comments Yes 0 (1 standard drink = 0.6 oz pur e alcohol) rarely Comments No Sex and Gender Information Value Date Recorded Sex Assigned at Not on file Legal Sex Female 2:01 PM CDT Gender Identity Not on file Sexual Orientation Not on file Last Filed Vital Signs Vital Sign Reading Time Taken Comments Blood Pressure 116/63 01/24/2020 11:31 AM CDT Pulse 60 01/24/2020 11:31 AM CDT Temperature 36.2 C (97.2 F) 01/24/2020 11:20 AM CDT Respiratory Rate 16 01/24/2020 11:31 AM CDT Oxygen Saturation 97% 01/24/2020 11:31 AM CDT Inhaled Oxygen Concentration - - Weight 78.7 kg (173 lb 9.6 oz) 01/24/2020 10:00 AM CDT Height 154.9 cm (5' 1) 01/24/2020 10:00 AM CDT Body Mass Index 32.8 01/24/2020 10:00 AM CDT Plan of Treatment Health Maintenance Due Date Last Done Comments DTAP/TDAP/TD VACCINES (1 - Tdap) 1972 FIT-DNA Q 3 years 1998 FIT/FOBT Q 1 year 1998 Flex Sig/CT Colonography Q 5 years 1998 PNEUMOCOCCAL VACCINE 50+ YEA RS (1 of 1 - PCV) 2003 ZOSTER VACCINE (1 of 2) 2003 BREAST CANCER SCREENING 06/08/2021 06/08/2020 INFLUENZA VACCINE (#1) 2023 OSTEOPOROSIS SCREENING 06/08/2025 06/08/2020 COLORECTAL SCREENING 01/23/2027 01/24/2020, 01/24/2020, 01/12/2014, Additional history exists Colorectal Cancer Screening 01/23/2027 RSV VACCINE (60+ or ) (1 - 1-dose 75+ series) 2028 Procedures Procedure Name Priority Date/Time Associated Diagnosis Comments COLONOSCOPY REPORT 01/24/2020 11 :13 AM CDT from Last 3 Months or Most Recently Relevant to Health Maintenance Results * COLONOSCOPY REPORT (01/24/2020 11:13 AM CDT) Narrative Procedure Note Fidel Linares MD - 01/24/2020 11:12 AM CDT [facility] Endoscopy Patient Name: Helen Redd Procedure Date: 01/24/2020 Date of : 1955 Admit Type: Outpatient Attending MD: Fidel Linares MD Procedure: Colonoscopy Indications: Surveillance: Personal history of adenomatous polyps on last colonoscopy > 5 years ago Providers: Fidel Linares MD Referring MD: Jose Pool MD Medicines: TIVA Complications: No immediate complications. Procedure: Informed consent was obtained for the procedure, including moderate sedation after risks were discussed. Based on the pre-procedure assessment, including review of the patient's medical history, medications, allergies, and review of systems, the patient was deemed to be an appropriate candidate for sedation. A timeout was performed. Continuous ECG monitoring, pulse oximetry, blood pressure monitoring, and direct observation were performed. The Colonoscope was introduced through the anus and advanced to the terminal ileum. The colonoscopy was performed without difficulty. The patient tolerated the procedure well. The quality of the bowel preparation was good. Estimated Blood Loss: Estimated blood loss: none. Findings: A 5 mm polyp was found in the transverse colon. The polyp was sessile. The polyp was removed with a cold snare. Resection and retrieval were complete. Multiple large-mouthed diverticula were found in the sigmoid colon, descending colon, splenic flexure and transverse colon. The exam was otherwise without abnormality. Impression: - One 5 mm polyp in the transverse colon, removed with a cold snare. Resected and retrieved. - Severe diverticulosis in the sigmoid colon, in the descending colon, at the splenic flexure and in the transverse colon. - The examination was otherwise normal. Recommendation: - Use fiber, for example Citrucel, Fibercon, Konsyl or Metamucil. - Repeat colonoscopy in 7 years for surveillance. Fidel Linares MD 01/24/2020 11:12:09 AM This report has been signed electronically. Number of Addenda: [address]; [place] [address] Fidel Linares MD GI PROCEDURE ORDERABLES Radha l Result from Last 3 Months or Most Recently Relevant to Health Maintenance Advance Directives For more information, please contact: [phone] * Full Code (Latest Code Status on File) Date Activated Date Inactivated Comments 01/24/2020 9:53 AM 01/24/2020 2:22 PM * Full Code Date Activated Date Inactivated Comments 01/12/2014 9:38 AM 01/12/2014 2:10 PM Care Teams Show Card Writer Relationship Specialty Start Date End Date Jose Pool MD [address] [place] [id number] PCP - General Family Practice 12/17/13
--- OUTSIDE RECORDS SUMMARY | 2024-09-09 08:39 | XMS_ITS | Continuity of Care Document ---
Author Name [facility] Organization [facility] Care Team Providers Care General Contractor Name Role Phone [facility] Unavailable Unavailable Social History Combined list of available smoking, tobacco, and other social history from Department of Defense and Veterans Affairs facilities. Social History Type Response Date Comment Sourc e This section is an empty social history section. [facility]
--- OUTSIDE RECORDS SUMMARY | 2024-09-09 08:39 | XMS_ITS | Referral Summary ---
Author Organization [facility] Address [address] [place] [address] Care Team Providers Care First Aid Officer Name Role Phone Jose Pool MD Primary Care Provider [phone] Allergies Active Allergy Reactions Criticality Noted Date Comments Pravastatin Muscle pain Medium 03/22/2019 Medications levothyroxine (LEVOXYL) 100 mcg tabletIndicatio ns:hypothyroidi sm Take 1 tablet (100 mcg total) by mouth category director before breakfast 8 Active ibuprofen (ibuprofen) 200 [...] 1 tablet (300 mg total) by mouth category director before breakfast [address] (PROTONIX) [...] 08/01/2022 Assessment & Plan (05/21/2024 4:13 PM CUTTING PRESSMAN): Discussed option for eyelid evaluation, pt again [...] 12/06/2020 Assessment & Plan (05/21/2024 12:31 PM CUTTING PRESSMAN): Continue using OTC allergy gtts such as [...] 02/04/2019 Assessment & Plan (02/04/2019 8:36 PM CUTTING PRESSMAN): Occasional palpitations lasting a minute at a [...] made. Assessment & Plan (03/22/2019 9:50 AM CUTTING PRESSMAN): Blood pressure is controlled with increased irbesartan dosage. Continue 300 mg daily. Assessment & Plan (02/04/2019 8:37 PM CUTTING PRESSMAN): Blood pressure is not optimally controlled on irbesartan 150 mg daily. Would consider increasing this dose or adding a beta-deuce or calcium channel deuce, depending on the results of her testing. Will obtain an echo Doppler to assess for left ventricular hypertrophy. Chest pain 02/04/2019 Assessment & Plan (02/04/2019 8:39 PM CUTTING PRESSMAN): Chest pain is somewhat atypical and may [...] made. Assessment & Plan (03/22/2019 9:51 AM CUTTING PRESSMAN): Severe dyslipidemia with LDL 208 on 09/10/2018. She is not tolerating pravastatin. Will try rosuvastatin 10 mg daily. She is to call in one month with a progress report. Assessment & Plan (02/04/2019 8:40 PM CUTTING PRESSMAN): Will request most recent lipids from her [...] 2017 Assessment & Plan (05/21/2024 12:36 PM CUTTING PRESSMAN): Not visually significant, recommend UV protection. Continue [...] OD>OS Assessment & Plan (05/21/2024 4:15 PM CUTTING PRESSMAN): Macular drusen OD> OS. 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 Renal cell carcinoma 06/26/2007 Social History Tobacco Use Types Packs/Day Years [...] on file Legal Sex Female 5:57 PM CUTTING PRESSMAN Gender Identity Not on file Sexual Orientation [...] 09/02/2023 7:25 AM CDT Plan of Treatment Not on file Procedures Procedure Name Priority Date/Time Associated Diagnosis Comments SCREENING MAMMOGRAM BILATERAL W FRANCO Schedule Routine, Read Routine (OP Routine) 09/16/2023 10:39 AM CDT Screening mammogram, encounter for DEXA AXIAL SKELETON BONE DENSITY 1 OR MORE SITES Schedule Routine, Read Routine (OP Routine) 06/08/2020 9:14 AM CUTTING PRESSMAN Osteoporosis screening from Last 3 Months or [...] 1 or 2 Site (06/08/2020 9:14 AM CUTTING PRESSMAN) Anatomical Region Laterality Modality Body N/A Digital Radiogra phy 06/08/2020 10:5 6 AM CUTTING PRESSMAN Impressions 06/08/2020 10:56 AM CUTTING PRESSMAN Low bone mass (osteopenia) which depending on the clinical circumstances may result in a moderate increased risk of fragility fracture. If followup is to be done, for technical reasons, it should be performed on this same machine. Electronically signed by: Jean Rain M.D. Narrative 06/08/2020 10:56 AM CUTTING PRESSMAN EXAM: Bone mineral density [facility]. HISTORY: Osteopenia. DXA BMD was done at [facility] on a POINT [employer] CI. Precision testing at this site has [...] MD - 06/08/2020 EXAM: Bone mineral density [facility]. HISTORY: Osteopenia. DXA BMD was done at [facility] on a POINT Biomed[employer] CI. Precision testing at this site has [...] Recently Relevant to Health Maintenance Insurance MEDICARE FOR LIFE [facility] FEDERAL Member Subscriber Plan / Payer (Ef fective 2015-Present) Name:Helen Redd Relation to Subscriber:Spouse Name:LUCY REDD Date of :1899 (Home) Address: [facility] [place] [address] Payer ID:[id number] (NAIC) Group ID:[id number] Type:[facility] Address: [address] [place] [address] [facility] [place] [address] [facility] ACCESS MEDICARE FOR LIFE MEDICARE FOR LIFE [facility] FED[employer]AL Member Subscriber Plan / Payer (Ef fective 2015-Present) Name:Helen Redd Relation to Subscriber:Spouse Name:LUCY REDD Date of :1899 (Home) Address: [place] [address] Payer ID:[id number] (NAIC) Group ID:[id number] Type:[facility] Address: [address] [place] [address] Care Teams First Aid Officer Relationship Specialty Start Date End Date Jose Pool MD [address] [address] PCP - General 07/24/16
[2024-09-09 21:07] LABS: Alanine Aminotransferase 15 U/L (6-35); Albumin Level 4.3 g/dL (3.5-5.1); Alkaline Phosphatase 93 U/L (38-126); Anion Gap 8 mmol/L (4-12); Aspartate Amino Transferase 41 U/L (14-36); Bilirubin,Total 0.6 mg/dL (0.2-1.3); Blood Urea Nitrogen 15 mg/dL (7-17); Carbon Dioxide 28 mmol/L (22-30); Chloride 103 mmol/L (98-107); Estimated Glomerular Filt Rate 57; Glucose 76 mg/dL (65-110); Phosphorus 3.5 mg/dL (2.5-4.5); Potassium 4.1 mmol/L (3.4-5.0); Sodium 139 mmol/L (137-145); Total Protein 7.5 g/dL (6.3-8.2)
[2024-09-09 21:54] LABS: Hemoglobin A1C 5.9 % (<5.7)
== END 2024-09-09 08:28 | disposition home or self-care (01) ==
LOC: ANHGOSHLAB 08:29
PROVIDERS: PCP Family Medicine; Visit Provider Family Medicine
DX: D51.9 Vitamin B12 deficiency anemia, unspecified (principal); E11.9 Type 2 diabetes mellitus without complications; E03.9 Hypothyroidism, unspecified
CPT/HCPCS: 36415; 80053; 82607; 83036; 84100; 84443

== ENCOUNTER 2024-10-28 09:51 | Outpatient (CLI) | payer MEDICARE, BC, OTHER, SELFPAY ==
--- NOTE | ~2024-10-28 | CT_ITS ---
EXAMINATION: CT soft tissue neck wo con DATE: 10/28/2024 10:13 INDICATION: Disease of salivary gland TECHNIQUE: Computed tomography (CT) of the neck was performed intravenous contrast. Automated exposur e control and iterative reconstruction technique were employed. The dose-length product was 398.12 mG y-cm. COMPARISON: 09/16/2022 and 08/11/2020 FINDINGS: Orbits are normal. The paranasal sinuses are clear. Small left mastoid effusion. Right mastoid air ce lls and bilateral middle ear cavities are clear. Submandibular and parotid glands are normal and symm etric. There are a few unchanged small intraparotid lymph nodes the largest on the right measuring 6 mm which is unchanged since 08/11/2020. Status post right thyroidectomy.. There are scattered normal-s ized lymph nodes in the neck, no lymphadenopathy. No masses identified. Airway is unremarkable. Supe rior mediastinum is unremarkable. Lung apices are normal. Moderate disc height loss and posterior di sc osteophyte complex contributing to mild central canal stenosis at C6-C7. IMPRESSION: 1. Normal bilateral parotid and submandibular glands. 2. Status post right thyroidectomy. Reviewed, dictated and finalized at location A.
== END 2024-10-28 09:52 | disposition home or self-care (01) ==
LOC: MICIMG 09:52
PROVIDERS: PCP Family Medicine; Visit Provider Family Medicine
DX: K11.8 Other diseases of salivary glands (principal)
CPT/HCPCS: 70490

== ENCOUNTER 2024-12-17 08:37 | Outpatient (CLI) | payer MEDICARE, BC, OTHER, SELFPAY ==
--- OUTSIDE RECORDS SUMMARY | 2024-12-17 08:41 | XMS_ITS | Clinical Summary ---
Author Organization [facility] Address [address] [place] [address] Care Team Providers Care Fisher Seal Name Role Phone Jose Pool MD Primary Care Provider [phone] Hayden Riggs MD Unavailable [phone] Allergies Active Allergy Reactions Criticality Noted Date Comments Pravastatin Muscle pain Medium 03/22/2019 Medications levothyroxine (LEVOXYL) 100 mcg tabletIndicatio ns:hypothyroidi sm Take 1 tablet (100 mcg total) by mouth buffer operator before breakfast 8 Active ibuprofen (ibuprofen) 200 [...] EVERY DAY 90 tablet 3 1 Active cyclobenzaprine (FLEXERIL) 10 mg tablet Take 1 tablet (10 mg total) by mouth 3 (three) times a day as needed for muscle spasms for muscle spasms 3 Active irbesartan (AVAPRO) 300 mg tabletIndicatio ns:hypertension Take 1 tablet (300 mg total) by mouth buffer operator before breakfast [address] (PROTONIX) [...] by mouth daily 30 tablet 4 Active Additional Information Patient not taking.Reported on 11/15/2024 vitamin [id number] acid 0.5-1 mg tablet Take by mouth Active Active Problems Problem Noted Date Diagnosed Date Cubital tunnel syndrome on right 08/21/2023 Dermatochalasis of both upper eyelids 08/01/2022 Assessment & Plan (05/21/2024 4:13 PM UNDERCUTTER): Discussed option for eyelid evaluation, pt again [...] 12/06/2020 Assessment & Plan (05/21/2024 12:31 PM UNDERCUTTER): Continue using OTC allergy gtts such as [...] 02/04/2019 Assessment & Plan (02/04/2019 8:36 PM UNDERCUTTER): Occasional palpitations lasting a minute at a [...] made. Assessment & Plan (03/22/2019 9:50 AM UNDERCUTTER): Blood pressure is controlled with increased irbesartan dosage. Continue 300 mg daily. Assessment & Plan (02/04/2019 8:37 PM UNDERCUTTER): Blood pressure is not optimally controlled on irbesartan 150 mg daily. Would consider increasing this dose or adding a beta-deuce or calcium channel deuce, depending on the results of her testing. Will obtain an echo Doppler to assess for left ventricular hypertrophy. Chest pain 02/04/2019 Assessment & Plan (02/04/2019 8:39 PM UNDERCUTTER): Chest pain is somewhat atypical and may [...] made. Assessment & Plan (03/22/2019 9:51 AM UNDERCUTTER): Severe dyslipidemia with LDL 208 on 09/10/2018. She is not tolerating pravastatin. Will try rosuvastatin 10 mg daily. She is to call in one month with a progress report. Assessment & Plan (02/04/2019 8:40 PM UNDERCUTTER): Will request most recent lipids from her [...] 2017 Assessment & Plan (05/21/2024 12:36 PM UNDERCUTTER): Not visually significant, recommend UV protection. Continue [...] OD>OS Assessment & Plan (05/21/2024 4:15 PM UNDERCUTTER): Macular drusen OD> OS. 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 Renal cell carcinoma 06/26/2007 Encounters Date Type Department Care Team Description 11/15/2024 9:15 AM CDT Office Visit [facility] Medicine Ophthalmology [address] [place] [address] Julee Lilly MD Intermediate stage nonexudative age-related macular degeneration of both eyes (Primary Dx) 09/30/2024 12:25 PM CDT - 09/30/2024 11:59 PM CDT Hospital Encounter [facility] - Imaging [address] [place] [address] Screening mammogram, encounter for Discharge Disposition: Discharge to home or self care from Last 3 Months Surgical History Surgery Date Site/Laterality Comments [place] LAPAROSCOPY SURG PARTIAL NEPHRECTOMY 03/31/2011 - 03/30/2012 [...] on file Legal Sex Female 5:57 PM UNDERCUTTER Gender Identity Not on file Sexual Orientation Not on file Obstetrics History Para Term AB IAB SAB Ectopic Multiple Livin g Live Births 1 1 1 Date Outcome GA Total Labor Labor/2nd/3rd Weight Sex Type Anes PTL Yesi A1 A5 Name Clin Term Last Filed Vital Signs Vital Sign Reading Time Taken Comments Blood Pressure 132/60 09/02/2023 11:25 AM CDT Pulse 62 09/02/2023 11:25 AM CDT Temperature 36.3 C (97.3 F) 09/02/2023 10:47 AM CDT Respiratory Rate 19 09/02/2023 11:25 AM CDT Oxygen Saturation 89% 09/02/2023 11:25 AM CDT Inhaled Oxygen Concentration - - Weight 80.3 kg (177 lb) 09/30/2024 12:43 PM CDT Height 154.9 cm (5' 1) 09/30/2024 12:43 PM CDT Body Mass Index 33.44 09/30/2024 12:43 PM CDT Plan of Treatment Health Maintenance Due Date Last Done Comments Colon Cancer Screening-Colonoscopy 1955 Depression Screening 1955 Hepatitis C Screening 1955 DTaP/Tdap/Td Vaccine (1 - Tdap) 1964 Hepatitis B Screening 1971 Pneumococcal vaccine 65+ (1 of 1 - PCV) 2003 Zoster Vaccine (1 of 2) 2003 Well Visit 65+ 2018 Osteoporosis Screening-Bone Density Scan 06/08/2022 06/08/2020, 01/02/2017 Fall Risk Assessment 09/01/2024 09/02/2023 Influenza Vaccine (#1) 2024 Breast Cancer Screening-Mammogram 09/30/2025 09/30/2024, 09/16/2023, 08/16/2022, Additional history exists Procedures Procedure Name Priority Date/Time Associated Diagnosis Comments OCT, RETINA - OU - BOTH EYES Routine 11/15/2024 9:42 AM CDT Intermediate stage nonexudative 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 Scan locations included subfoveal. Progression has no prior data. Left Eye Quality was good. Scan locations included subfoveal. Progression has no prior data. Notes Right eye (OD): VMT; vitelliform druse Left eye (OS): small drusen Julee Lilly MD OPHTH TOMOGRAPHY Final Res ult * Screening Mammogram Bilateral W Franco (09/30/2024 12:43 PM CDT) Anatomical Region Laterality Modality Breast Bilateral Mammography Impressions 10/05/2024 7:05 AM CDT Bilateral No evidence of malignancy in either breast. OVERALL BI-RADS FINAL ASSESSMENT: 1 - Negative RECOMMENDATION: Recommend bilateral annual screening mammography. Narrative 10/05/2024 7:05 AM CDT EXAMINATION: Screening Mammogram Bilateral W Franco: 09/30/2024 COMPARISON: Relevent prior studies available at the time of interpretation were reviewed, including the most recent mammogram on: 09/16/2023. TECHNIQUE: Mammography was performed with 2D and digital breast tomosynthesis (DBT) images. CAD was utilized. BREAST PARENCHYMAL COMPOSITION: There are scattered areas of fibroglandular density. FINDINGS: Bilateral There is no suspicious mass, calcification, or architectural distortion in either breast. us Self Screening Mammogram IMG MAMMO PROCEDURES Fi nal Result * Dexa Axial Skeleton Bone Density 1 or 2 Site (06/08/2020 9:14 AM UNDERCUTTER) Anatomical Region Laterality Modality Body N/A Digital Radiogra phy 06/08/2020 10:5 6 AM UNDERCUTTER Impressions 06/08/2020 10:56 AM UNDERCUTTER Low bone mass (osteopenia) which depending on the clinical circumstances may result in a moderate increased risk of fragility fracture. If followup is to be done, for technical reasons, it should be performed on this same machine. Electronically signed by: Jean Rain M.D. Narrative 06/08/2020 10:56 AM UNDERCUTTER EXAM: Bone mineral density [facility]. HISTORY: Osteopenia. DXA BMD was done at [facility] on a zerved CI. Precision testing at this site has [...] MD - 06/08/2020 EXAM: Bone mineral density [facility]. HISTORY: Osteopenia. DXA BMD was done at [facility] on a zerved CI. Precision testing at this site has [...] Recently Relevant to Health Maintenance Insurance MEDICARE [facility] FEDERAL Member Subscriber Plan / Payer (Ef fective 2015-Present) Name:Helen Redd Relation to Subscriber:Spouse Name:LUCY REDD Date of :1899 (Home) Address[facility] [place] [address] Payer ID:[id number] (NAIC) Group ID:[id number] Type:[facility] Address: [address] [place] [address] [facility] MEDICARE FOR LIFE MEDICARE FOR LIFE [facility] FED[employer]AL Member Subscriber Plan / Payer (Ef fective 2015-Present) Name:Helen Redd Ann Relation to Subscriber:Spouse Name:LUCY REDD Date of :1899 (Home) Address: [address] [place], [place] [address] [address] Payer ID:[id number] (NAIC) Group ID:[id number] Type:[facility] Address: [address] [place] [address] MEDICARE [facility] FED[employer]AL Member Subscriber Plan / Payer (Ef fective 2015-Present) Name:Helen Redd Relation to Subscriber:Spouse Name:LUCY REDD Date of :1899 (Home) Address: [place] [address] Payer ID:[id number] (NAIC) Group ID:[id number] Type:[facility] Address: [address] [place] [address] Care Teams Fisher Seal Relationship Specialty Start Date End Date Jose Pool MD [address] [address] PCP - General 07/24/16 Hayden Riggs MD [address] [facility] [address] [place] [address] Consulting Physician Obstetrics and Gynecology 09/30/24
--- OUTSIDE RECORDS SUMMARY | 2024-12-17 08:41 | XMS_ITS | Clinical Summary ---
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 Active lansoprazole (PREVACID) 30 mg Capsule, Delayed [...] CANCER SCREENING 06/08/2021 06/08/2020 INFLUENZA VACCINE (#1) 2024 OSTEOPOROSIS SCREENING 06/08/2025 06/08/2020 COLORECTAL SCREENING 01/23/2027 [...] Linares MD - 01/24/2020 11:12 AM CDT [facility] Endoscopy Patient Name: Helen Redd Procedure Date: [...] of Addenda: [address]; [place] [address] Fidel Linares MD GI PROCEDURE ORDERABLES Radha l Result from Last 3 Months or Most Recently Relevant to Health Maintenance Advance Directives For more information, please contact: [phone] * Full Code (Latest Code Status on File) Date Activated Date Inactivated Comments 01/24/2020 9:53 AM 01/24/2020 2:22 PM * Full Code Date Activated Date Inactivated Comments 01/12/2014 9:38 AM 01/12/2014 2:10 PM Care Teams Flow Machine Operator Relationship Specialty Start Date End Date Jose Pool MD [address] [place] [id number] PCP - General Family Practice 12/17/13
[2024-12-17 13:53] LABS: Free T4 Free Thyroxine 1.59 ng/dL (0.78-2.19)
[2024-12-17 14:13] LABS: Thyroid Stimulating Hormone 0.025 uIU/mL (0.465-4.680)
[2024-12-17 15:23] LABS: Vitamin B12 648.0 pg/mL (239-931)
== END 2024-12-17 08:38 | disposition home or self-care (01) ==
LOC: ANHGOSHLAB 08:39
PROVIDERS: PCP Family Medicine; Visit Provider Family Medicine
DX: D51.9 Vitamin B12 deficiency anemia, unspecified (principal); E03.9 Hypothyroidism, unspecified
CPT/HCPCS: 36415; 82607; 84439; 84443